=== PATIENT | male | born 1940 | race Caucasian/White ===

== ENCOUNTER → 2016-12-25 | Outpatient (CLI) | payer MEDICARE | END | disposition home or self-care (01) | LOC: PCVCCLINIC 13:57 | PROVIDERS: ATTEND Internal Medicine | DX: I25.5 Ischemic cardiomyopathy (principal); I50.9 Heart failure, unspecified; I47.2 Ventricular tachycardia; I10 Essential (primary) hypertension; I65.29 Occlusion and stenosis of unspecified carotid artery; E78.5 Hyperlipidemia, unspecified; Z95.810 Presence of automatic (implantable) cardiac defibrillator | CPT/HCPCS: 80061; 93005; G0463 ==

== ENCOUNTER → 2018-01-07 | Outpatient (CLI) | payer MEDICARE | END | disposition home or self-care (01) | LOC: PCVCCLINIC 13:18 | DX: I13.0 Hypertensive heart and chronic kidney disease with heart failure and stage 1 through stage 4 chronic kidney disease, or unspecified chronic kidney disease (principal); I50.22 Chronic systolic (congestive) heart failure; N18.4 Chronic kidney disease, stage 4 (severe); I25.10 Atherosclerotic heart disease of native coronary artery without angina pectoris; I25.5 Ischemic cardiomyopathy; I47.2 Ventricular tachycardia; I65.23 Occlusion and stenosis of bilateral carotid arteries; R94.31 Abnormal electrocardiogram [ECG] [EKG]; E78.5 Hyperlipidemia, unspecified; Z95.810 Presence of automatic (implantable) cardiac defibrillator; Z87.891 Personal history of nicotine dependence; Z79.899 Other long term (current) drug therapy; Z79.82 Long term (current) use of aspirin | CPT/HCPCS: 80061; 93005; G0463 ==

== ENCOUNTER → 2018-07-15 | Outpatient (CLI) | payer MEDICARE | END | disposition home or self-care (01) | LOC: PCVCCLINIC 14:35 | PROVIDERS: ATTEND Internal Medicine | DX: I25.10 Atherosclerotic heart disease of native coronary artery without angina pectoris (principal); I25.5 Ischemic cardiomyopathy; I47.2 Ventricular tachycardia; I65.23 Occlusion and stenosis of bilateral carotid arteries; E78.5 Hyperlipidemia, unspecified; I13.0 Hypertensive heart and chronic kidney disease with heart failure and stage 1 through stage 4 chronic kidney disease, or unspecified chronic kidney disease; N18.4 Chronic kidney disease, stage 4 (severe); I50.22 Chronic systolic (congestive) heart failure; Z95.810 Presence of automatic (implantable) cardiac defibrillator; Z87.891 Personal history of nicotine dependence; Z79.82 Long term (current) use of aspirin; Z72.89 Other problems related to lifestyle | CPT/HCPCS: 80061; 93005; G0463 ==

== ENCOUNTER → 2019-01-19 | Outpatient (CLI) | payer MEDICARE ==
--- NOTE | 2019-01-19 09:25 | PCVCIMAG ---
APPROVED REPORT Study performed: 01/19/2019 08:20:22 EXAM: Comprehensive 2D, Doppler, and color-flow Echocardiogram Patient Location: Echo lab Status: routine BSA: 1.83 HR: 68 bpmBP: 110/60 mmHg Rhythm: Pacemaker Other Information Study Quality: Adequate Indications Congestive Heart Failure CAD Ischemic cardiomyopathy 2D Dimensions IVSd: 10.69 (7-11mm) LVDd: 63.44 mm PWd: 9.89 (7-11mm)Ascending Ao: 36.85 (22-36mm) LVDs: 58.21 (25-40mm) Left Atrium: 53.55 (27-40mm) Aortic Root: 33.48 mm LV Single Plane 4CH: 12.41 % LV Single Plane 2CH: 41.74 % Volumes Left Atrial Volume (Systole) Single Plane 4CH: 90.32 mLSingle Plane 2CH: 96.18 mL LA ESV Index: 51.00 mL/m2 Aortic Valve AoV Peak Shiva.: 1.33 m/s AO Peak Gr.: 7.10 mmHgLVOT Max P.05 mmHg LVOT Max V: 0.51 m/s AI Vmax: 4.09 m/s AI [place]: 3.02 m/s2 AI PHT: 392.95 ms Mitral Valve E/A Ratio: 0.5 MV Decel. Time: 273.84 ms MV E Max Shiva.: 0.63 m/s MV A Shiva.: 1.38 m/s Pulmonary Valve PV Peak Shiva.: 1.03 m/sPV Peak Gr.: 4.28 mmHg Tricuspid Valve TR Peak Shiva.: 2.84 m/s TR Peak Gr.: 32.38 mmHg Left Ventricle Left ventricle is mildly dilated. There is normal left ventricular wall thickness. Left ventricular ejection fraction is severely decreased. Inferior, inferoseptal and inferolateral akinesis. LVEF 30%. Mild diastolic dysfunction is present (impaired relaxation pattern). Right Ventricle The right ventricle is normal size. The right ventricular systolic function is normal. Atria Left atrium is severely dilated. Right atrium is moderately dilated. Aortic Valve The aortic valve is normal in structure. Mild-moderate aortic regurgitation. There is no aortic valvular stenosis. Mitral Valve The mitral valve is normal in structure. Moderate mitral regurgitation. No evidence of mitral valve stenosis. Tricuspid Valve The tricuspid valve is normal in structure. Mild to moderate tricuspid regurgitation with PAP of 40 mmHg. Pulmonic Valve The pulmonary valve is normal in structure. Mild pulmonic regurgitation. Great Vessels The aortic root is normal in size. IVC is normal in size and collapses >50% with inspiration. Pericardium There is no pericardial effusion. There is no pleural effusion. <Conclusion> Left ventricular ejection fraction is severely decreased. Inferior, inferoseptal and inferolateral akinesis. LVEF 30%. Mild diastolic dysfunction Both atria are dilated. The aortic valve is mildly sclerotic. Mild-moderate aortic regurgitation, no stenosis. The mitral valve is normal in structure. Moderate mitral regurgitation. Mild to moderate tricuspid regurgitation with pulmonary artery pressure of 40 mmHg. There is no pericardial effusion. Similar to a study dated May 2016
--- NOTE | 2019-01-19 09:51 | PCVCIMAG ---
APPROVED REPORT Indications Stenosis Doppler Spectral Velocity Analysis PSV / EDVPSV / EDV ECA (R) 89 / 0 cm/sECA (L) 294 / 0 cm/s dICA (R) 63 / 14 cm/sdICA (L) 94 / 19 cm/s Luz Elena (R) 78 / 23 cm/smICA (L) 110 / 21 cm/s pICA (R) 55 / 13 cm/spICA (L) 103 / 6 cm/s Bulb (R) 79 / 9 cm/sBulb (L) 104 / 10 cm/s dCCA (R) 66 / 12 cm/sdCCA (L) 95 / 11 cm/s mCCA (R) 58 / 9 cm/smCCA (L) 59 / 14 cm/s Vert (R) 52 / 13 cm/sVert (L) 33 / 0 cm/s ICA/CCA 1.18ICA/CCA 1.16 Findings The right carotid bulb has mild plaque. The right proximal internal carotid artery shows <40% stenosis. The right common carotid artery shows no significant stenosis. The right external carotid artery shows no significant stenosis. The left carotid bulb has moderate calcified plaque. The left proximal internal carotid artery shows <40% stenosis. The left common carotid artery shows no significant stenosis. The left external carotid artery shows >50% stenosis. Conclusion 1. Right internal carotid artery stenosis (<40%) 2. Left internal carotid artrery stenosis (<40%) 3. Antegrade vertebral flow Similar to May 2016
== END | disposition home or self-care (01) ==
LOC: PCVCIMAG 08:58
PROVIDERS: ATTEND Internal Medicine
DX: I25.5 Ischemic cardiomyopathy (principal); I25.10 Atherosclerotic heart disease of native coronary artery without angina pectoris; E78.5 Hyperlipidemia, unspecified; I13.0 Hypertensive heart and chronic kidney disease with heart failure and stage 1 through stage 4 chronic kidney disease, or unspecified chronic kidney disease; I50.22 Chronic systolic (congestive) heart failure; N18.4 Chronic kidney disease, stage 4 (severe); I47.2 Ventricular tachycardia; I65.23 Occlusion and stenosis of bilateral carotid arteries; Z95.810 Presence of automatic (implantable) cardiac defibrillator
CPT/HCPCS: 36415; 80061; 93005; 93282; 93306; 93880; G0463

== ENCOUNTER → 2019-07-27 | Outpatient (CLI) | payer MEDICARE | END | disposition home or self-care (01) | LOC: PCVCCLINIC 13:00 | PROVIDERS: ATTEND Internal Medicine | DX: I13.0 Hypertensive heart and chronic kidney disease with heart failure and stage 1 through stage 4 chronic kidney disease, or unspecified chronic kidney disease (principal); I50.22 Chronic systolic (congestive) heart failure; N18.4 Chronic kidney disease, stage 4 (severe); I65.23 Occlusion and stenosis of bilateral carotid arteries; E78.5 Hyperlipidemia, unspecified; Z95.810 Presence of automatic (implantable) cardiac defibrillator; J44.9 Chronic obstructive pulmonary disease, unspecified; E03.9 Hypothyroidism, unspecified; Z79.899 Other long term (current) drug therapy; Z87.891 Personal history of nicotine dependence | CPT/HCPCS: 36415; 80061; 93005; 93282; G0463 ==